=== PATIENT | male | born 1985 | race Hispanic/Latino ===

== ENCOUNTER 2021-05-24 11:41 | Emergency (ER) | payer OTHER ==
[~2021-05-24] VITALS: Ht 175.3 cm; Wt 95.0 kg
[2021-05-24 12:29] VITALS: BP 121/71
[2021-05-24] MEDS ORDERED: HYDROCO/APAP1 TA9 PO (12:30)
== END 2021-05-24 12:45 | disposition home or self-care (01) ==
LOC: ED 11:41
DX: S83.015A Lateral dislocation of left patella, initial encounter (principal); I10 Essential (primary) hypertension; X50.0XXA Overexertion from strenuous movement or load, initial encounter; Y93.89 Activity, other specified; Y92.009 Unspecified place in unspecified non-institutional (private) residence as the place of occurrence of the external cause
CPT/HCPCS: J2060; L1830